=== PATIENT | male | born 1975 | race African-American/Black ===

== ENCOUNTER 2021-04-24 08:21 | Emergency (ER) | payer MEDICARE, MEDICAID ==
[2021-04-24 09:08] LABS: #Eosinphils 0.2 thou/uL (0.0-0.7); #Lymphocytes 1.6 thou/uL (1.20-3.40); #Monocytes 0.4 thou/uL (0.11-0.59); #Neutrophils 2.7 thou/uL (1.40-6.50); %Basophils 0.3 % (0.0-1.0); %Eosinophils 3.3 % (0.0-10.0); %Lymphocytes 32.6 % (21.0-51.0); %Monocytes 8.5 % (0.0-10.0); %Neutrophils 55.3 % (42.0-75.0); Hemoglobin 14.3 g/dL (14.0-18.0); Mean Corpuscular HGB CONC 32.6 g/dL (32.0-36.0); Mean Corpuscular Hemoglobin 29.2 pg (27.0-31.0); Mean Corpuscular Volume 89.6 fL (78.0-98.0); Mean Platelet Volume 7.8 fL (7.4-10.4); Platelet Count 236 thou/uL (130-400); RBC Distribution Width 13.7 % (11.5-14.5); White Blood Cell (WBC) Count 4.8 thou/uL (4.8-10.8)
[2021-04-24 09:29] LABS: ALT (SGPT) 28 U/L (8-55); AST (SGOT) 22 U/L (5-34); Albumin 3.9 g/dL (3.5-5.0); Alkaline Phosphatase 103 U/L (40-110); Anion Gap 15 mmol/L (10-20); BUN (Urea Nitrogen) 6 mg/dL (8.9-20.6); Bilirubin, Total 0.5 mg/dL (0.2-1.2); Calc. Creatinine Clearance 0 mL/min (70-130); Calcium 8.9 mg/dL (7.8-10.44); Carbon Dioxide 26 mmol/L (22-29); Chloride 100 mmol/L (98-107); Globulin 3.2 g/dL (2.4-3.5); Glucose 134 mg/dL (70-105); Potassium 4.7 mmol/L (3.5-5.1); Protein, Total 7.1 g/dL (6.0-8.3); Sodium 136 mmol/L (136-145)
[2021-04-24] MEDS ORDERED: methylPREDNISolone Sod Succ/PF 125 MG/2 ML VIAL ONE (10:02)
[2021-04-24 12:24] LABS: SARS-CoV-2 NAA Rapid Test Not Detected (NotDetected)
[2021-04-24 12:56] LABS: Troponin I Less than 0.010 ng/mL (< 0.028)
== END 2021-04-24 13:40 | disposition home or self-care (01) ==
LOC: ERS 08:21
DX: J44.1 Chronic obstructive pulmonary disease with (acute) exacerbation (principal); R07.89 Other chest pain; Z20.822 Contact with and (suspected) exposure to COVID-19; E11.9 Type 2 diabetes mellitus without complications; I10 Essential (primary) hypertension; F17.210 Nicotine dependence, cigarettes, uncomplicated
CPT/HCPCS: 71045; 80053; 84484 ×2; 85025; 93005; U0002; 36415; 96374; J2930

== ENCOUNTER 2021-05-20 03:44 | Emergency (ER) | payer MEDICARE, MEDICAID ==
[2021-05-20 04:17] LABS: Bacteria/HPF None Seen HPF (None Seen); Bilirubin Negative (Negative); Blood, Urine Negative (Negative); Clarity Clear (Clear); Glucose, Urine (Dipstick) Normal (Negative); Ketone, Urine Negative (Negative); Leukocyte Negative Leu/uL (Negative); Nitrite Negative (Negative); Protein, Urine (Dipstick) 300 mg/dL (Neg-Trace); RBC/HPF 0-3 HPF (0-3); Specific Gravity, Urine 1.033 (1.002-1.036); Squamous Epithelial 0-3 HPF (0-3); Urobilinogen 3 mg/dL (Less than 2)
[2021-05-20] MEDS ORDERED: Lidocaine Viscous Sol 2% 15 ml UD Cup ONE (04:39)
[2021-05-20] MEDS ORDERED: Mag-Al 1200 mg/1200 mg/30 ML UDCUP ONE (04:39)
[2021-05-20 05:22] LABS: #Eosinphils 0.1 thou/uL (0.0-0.7); #Lymphocytes 1.1 thou/uL (1.20-3.40); #Monocytes 0.4 thou/uL (0.11-0.59); #Neutrophils 3.1 thou/uL (1.40-6.50); %Basophils 0.3 % (0.0-1.0); %Eosinophils 3.1 % (0.0-10.0); %Lymphocytes 22.8 % (21.0-51.0); %Monocytes 7.7 % (0.0-10.0); %Neutrophils 66.2 % (42.0-75.0); Mean Corpuscular HGB CONC 31.6 g/dL (32.0-36.0); Mean Corpuscular Hemoglobin 28.3 pg (27.0-31.0); Mean Corpuscular Volume 89.6 fL (78.0-98.0); Mean Platelet Volume 7.5 fL (7.4-10.4); Platelet Count 253 thou/uL (130-400); Red Blood Cell (RBC) Count 4.92 mill/uL (4.70-6.10); White Blood Cell (WBC) Count 4.7 thou/uL (4.8-10.8)
[2021-05-20 05:47] LABS: ALT (SGPT) 42 U/L (8-55); AST (SGOT) 27 U/L (5-34); Albumin 3.5 g/dL (3.5-5.0); Alkaline Phosphatase 111 U/L (40-110); Anion Gap 12 mmol/L (10-20); BUN (Urea Nitrogen) 11 mg/dL (8.9-20.6); Bilirubin, Total 0.3 mg/dL (0.2-1.2); Calc. Creatinine Clearance 0 mL/min (70-130); Calcium 8.7 mg/dL (7.8-10.44); Carbon Dioxide 30 mmol/L (22-29); Chloride 104 mmol/L (98-107); Globulin 2.8 g/dL (2.4-3.5); Glucose 128 mg/dL (70-105); Lipase 26 U/L (8-78); Potassium 4.5 mmol/L (3.5-5.1); Protein, Total 6.3 g/dL (6.0-8.3); Sodium 141 mmol/L (136-145)
== END 2021-05-20 06:10 | disposition home or self-care (01) ==
LOC: ERS 03:44
DX: R10.13 Epigastric pain (principal); E11.9 Type 2 diabetes mellitus without complications; I10 Essential (primary) hypertension; F17.210 Nicotine dependence, cigarettes, uncomplicated; Z79.84 Long term (current) use of oral hypoglycemic drugs; Z79.899 Other long term (current) drug therapy
CPT/HCPCS: 36415; 80053; 81003; 81015; 83690; 85025; 93005

== ENCOUNTER 2021-06-08 18:56 | Inpatient (IN) | payer MEDICARE, MEDICAID ==
[2021-06-08 19:56] LABS: #Eosinphils 0.1 thou/uL (0.0-0.7); #Lymphocytes 1.2 thou/uL (1.20-3.40); #Monocytes 0.4 thou/uL (0.11-0.59); #Neutrophils 4.2 thou/uL (1.40-6.50); %Basophils 0.4 % (0.0-1.0); %Lymphocytes 19.8 % (21.0-51.0); %Monocytes 7.1 % (0.0-10.0); %Neutrophils 70.7 % (42.0-75.0); Hemoglobin 13.5 g/dL (14.0-18.0); Mean Corpuscular Hemoglobin 29.3 pg (27.0-31.0); Platelet Count 240 thou/uL (130-400); RBC Distribution Width 14.2 % (11.5-14.5); White Blood Cell (WBC) Count 5.9 thou/uL (4.8-10.8)
[2021-06-08] MEDS ORDERED: methylPREDNISolone Sod Succ/PF 125 MG/2 ML VIAL ONE (19:58)
[2021-06-08] MEDS ORDERED: Magnesium 2 GM/50 ML BAG (IN WATER) ONE (19:58)
[2021-06-08 20:24] LABS: ALT (SGPT) 21 U/L (8-55); AST (SGOT) 24 U/L (5-34); Albumin 3.5 g/dL (3.5-5.0); Alkaline Phosphatase 106 U/L (40-110); Anion Gap 15 mmol/L (10-20); BUN (Urea Nitrogen) 14 mg/dL (8.9-20.6); Bilirubin, Total 0.5 mg/dL (0.2-1.2); Calc. Creatinine Clearance 0 mL/min (70-130); Calcium 8.5 mg/dL (7.8-10.44); Carbon Dioxide 27 mmol/L (22-29); Chloride 102 mmol/L (98-107); Glucose 101 mg/dL (70-105); Potassium 4.1 mmol/L (3.5-5.1); Protein, Total 6.5 g/dL (6.0-8.3); Sodium 140 mmol/L (136-145)
[2021-06-08] MEDS ORDERED: Furosemide 40 MG/4 ML VIAL ONE (21:21)
[2021-06-08] MEDS ORDERED: Nitroglycerin 2% Ointment 1 INCH/1 GM Packet ONE (21:21)
[2021-06-08] MEDS ORDERED: Ondansetron PF 4 MG/2 ML Vial IVP PRN (21:31)
[2021-06-08] MEDS ORDERED: Dextrose 50% Abboject 50 ML SYRINGE SLOW IVP PRN (21:33)
[2021-06-08] MEDS ORDERED: hydrALAZINE 20 MG/ML VIAL SLOW IVP PRN (21:33)
[2021-06-08] MEDS ORDERED: Dextrose 5% in Water 1,000 ML IV PRN (21:33)
[2021-06-08 22:22] LABS: SARS-CoV-2 NAA Rapid Test Not Detected (NotDetected)
[2021-06-09 00:18] VITALS: BMI 49.4
[2021-06-09] MEDS: methylPREDNISolone Sod Succ 40 MG VIAL IVP SCH ×6 (01:05→18:20)
[2021-06-09 02:47] LABS: Troponin I Less than 0.010 ng/mL (< 0.028)
[2021-06-09 04:51] LABS: #Eosinphils 0.1 thou/uL (0.0-0.7); #Lymphocytes 0.5 thou/uL (1.20-3.40); #Monocytes 0.1 thou/uL (0.11-0.59); #Neutrophils 7.5 thou/uL (1.40-6.50); %Basophils 0.1 % (0.0-1.0); %Lymphocytes 6.1 % (21.0-51.0); %Monocytes 1.7 % (0.0-10.0); %Neutrophils 91.1 % (42.0-75.0); Mean Corpuscular HGB CONC 33.2 g/dL (32.0-36.0); Mean Corpuscular Volume 87.3 fL (78.0-98.0); Mean Platelet Volume 7.3 fL (7.4-10.4); Platelet Count 260 thou/uL (130-400); RBC Distribution Width 14.4 % (11.5-14.5); Red Blood Cell (RBC) Count 4.83 mill/uL (4.70-6.10); White Blood Cell (WBC) Count 8.3 thou/uL (4.8-10.8)
[2021-06-09 05:16] LABS: Anion Gap 14 mmol/L (10-20); BUN (Urea Nitrogen) 14 mg/dL (8.9-20.6); Calc. Creatinine Clearance 239 mL/min (70-130); Carbon Dioxide 29 mmol/L (22-29); Chloride 99 mmol/L (98-107); Glucose 209 mg/dL (70-105); Magnesium 1.8 mg/dL (1.6-2.6); Potassium 4.3 mmol/L (3.5-5.1); Sodium 138 mmol/L (136-145)
[2021-06-09] MEDS: Furosemide 40 MG/4 ML VIAL SLOW IVP SCH ×2 (05:33→14:36)
[2021-06-09] MEDS: HumaLOG 300 UNITS/3 ML VIAL SC PRN ×2 (05:46→12:44)
[2021-06-09] MEDS ORDERED: Nitroglycerin 0.4 MG TAB (25 Tab Bottle) SL PRN (06:53)
[2021-06-09] MEDS ORDERED: FLU VACC QS2021-22(6MOS UP)/PF 60 MCG/0.5 ML SYRINGE IM ONE (09:00)
[2021-06-09] MEDS ORDERED: Prevnar 13-Val Conj/PF 0.5 ML SYRINGE IM ONE (09:00)
[2021-06-09] MEDS: Acetaminophen 325 MG TAB PO PRN (09:31)
[2021-06-09] MEDS: Enoxaparin Sodium 40 MG/0.4 ML SYRINGE SC SCH (09:31)
[2021-06-09] MEDS: hydrALAZINE 20 MG/ML VIAL SLOW IVP PRN (09:37)
[2021-06-09] MEDS ORDERED: Lisinopril 5 MG TAB PO SCH (12:30)
[2021-06-09] MEDS: Albuterol 200 PUFF (6.7GM INHALER) INH SCH ×2 (14:49→18:41)
[2021-06-09] MEDS: Mometasone 200 MCG/Formoterol 5 MCG 120 PUFF INHALER INH SCH (18:57)
[2021-06-10] MEDS: HumaLOG 300 UNITS/3 ML VIAL SC PRN ×5 (00:02→22:42)
[2021-06-10] MEDS: methylPREDNISolone Sod Succ 40 MG VIAL IVP SCH ×2 (00:04→05:11)
[2021-06-10] MEDS: Albuterol 200 PUFF (6.7GM INHALER) INH SCH ×3 (05:02→07:42)
[2021-06-10] MEDS: Furosemide 40 MG/4 ML VIAL SLOW IVP SCH ×2 (05:11→13:43)
[2021-06-10 05:16] LABS: #Lymphocytes 0.6 thou/uL (1.20-3.40); #Monocytes 0.4 thou/uL (0.11-0.59); #Neutrophils 9.4 thou/uL (1.40-6.50); %Eosinophils 0.1 % (0.0-10.0); %Lymphocytes 5.7 % (21.0-51.0); %Monocytes 3.9 % (0.0-10.0); %Neutrophils 90.3 % (42.0-75.0); Hemoglobin 13.6 g/dL (14.0-18.0); Mean Corpuscular HGB CONC 32.1 g/dL (32.0-36.0); Mean Corpuscular Hemoglobin 28.1 pg (27.0-31.0); Mean Corpuscular Volume 87.6 fL (78.0-98.0); Mean Platelet Volume 7.1 fL (7.4-10.4); Platelet Count 293 thou/uL (130-400); RBC Distribution Width 14.4 % (11.5-14.5); Red Blood Cell (RBC) Count 4.84 mill/uL (4.70-6.10); White Blood Cell (WBC) Count 10.4 thou/uL (4.8-10.8)
[2021-06-10] MEDS: Mometasone 200 MCG/Formoterol 5 MCG 120 PUFF INHALER INH SCH ×2 (07:41→18:17)
[2021-06-10] MEDS: hydrALAZINE 20 MG/ML VIAL SLOW IVP PRN ×2 (07:56→14:38)
[2021-06-10] MEDS: Atorvastatin Calcium 40 MG TAB PO SCH (07:57)
[2021-06-10] MEDS: Enoxaparin Sodium 40 MG/0.4 ML SYRINGE SC SCH (07:57)
[2021-06-10] MEDS: Losartan 25 MG TAB PO SCH (07:58)
[2021-06-10] MEDS ORDERED: Non-Formulary Item 1 EACH (Losartan Potassium [Losartan Potassium] 50 MG Tablet) PO SCH (09:00)
[2021-06-10] MEDS: Labetalol 100 MG TAB PO SCH ×2 (09:13→22:44)
[2021-06-10] MEDS ORDERED: cloNIDine 0.1 MG TAB PO SCH (11:00)
[2021-06-10 13:47] LABS: Calcium 8.5 mg/dL (7.8-10.44); Chloride 100 mmol/L (98-107); Glucose 434 mg/dL (70-105); Potassium 4.9 mmol/L (3.5-5.1); Sodium 134 mmol/L (136-145)
[2021-06-10 13:49] LABS: Anion Gap 16 mmol/L (10-20); Carbon Dioxide 23 mmol/L (22-29)
[2021-06-10 13:51] LABS: Calc. Creatinine Clearance 199 mL/min (70-130)
[2021-06-10 13:52] LABS: BUN (Urea Nitrogen) 14 mg/dL (8.9-20.6)
[2021-06-10 13:53] LABS: Magnesium 1.8 mg/dL (1.6-2.6)
[2021-06-10] MEDS ORDERED: Lantus 1000 UNITS/10 ML VIAL SC SCH (21:00)
[2021-06-11] MEDS: hydrALAZINE 20 MG/ML VIAL SLOW IVP PRN (00:39)
[2021-06-11 05:18] LABS: #Lymphocytes 1.5 thou/uL (1.20-3.40); #Monocytes 0.6 thou/uL (0.11-0.59); #Neutrophils 7.2 thou/uL (1.40-6.50); %Basophils 0.1 % (0.0-1.0); %Eosinophils 0.3 % (0.0-10.0); %Lymphocytes 15.7 % (21.0-51.0); %Monocytes 6.4 % (0.0-10.0); %Neutrophils 77.5 % (42.0-75.0); Hemoglobin 13.8 g/dL (14.0-18.0); Mean Corpuscular HGB CONC 32.5 g/dL (32.0-36.0); Mean Corpuscular Hemoglobin 28.8 pg (27.0-31.0); Mean Corpuscular Volume 88.4 fL (78.0-98.0); Mean Platelet Volume 7.3 fL (7.4-10.4); Platelet Count 269 thou/uL (130-400); RBC Distribution Width 14.6 % (11.5-14.5); Red Blood Cell (RBC) Count 4.79 mill/uL (4.70-6.10); White Blood Cell (WBC) Count 9.2 thou/uL (4.8-10.8)
[2021-06-11] MEDS: Acetaminophen 325 MG TAB PO PRN (05:37)
[2021-06-11] MEDS: Furosemide 40 MG/4 ML VIAL SLOW IVP SCH (05:38)
[2021-06-11 05:39] LABS: Anion Gap 15 mmol/L (10-20); BUN (Urea Nitrogen) 14 mg/dL (8.9-20.6); Calc. Creatinine Clearance 241 mL/min (70-130); Calcium 8.9 mg/dL (7.8-10.44); Carbon Dioxide 32 mmol/L (22-29); Chloride 98 mmol/L (98-107); Glucose 196 mg/dL (70-105); Potassium 3.9 mmol/L (3.5-5.1); Sodium 141 mmol/L (136-145)
[2021-06-11] MEDS: HumaLOG 300 UNITS/3 ML VIAL SC PRN ×2 (06:31→12:42)
[2021-06-11] MEDS: Mometasone 200 MCG/Formoterol 5 MCG 120 PUFF INHALER INH SCH (06:55)
[2021-06-11] MEDS ORDERED: Lantus 1000 UNITS/10 ML VIAL SC SCH (09:00)
[2021-06-11] MEDS: Losartan 25 MG TAB PO SCH (10:02)
[2021-06-11] MEDS: Labetalol 100 MG TAB PO SCH (10:02)
[2021-06-11] MEDS: Atorvastatin Calcium 40 MG TAB PO SCH (10:02)
[2021-06-11] MEDS: Enoxaparin Sodium 40 MG/0.4 ML SYRINGE SC SCH (10:04)
[2021-06-11 13:05] VITALS: BP 174/69; TEMP 98.4
== END 2021-06-11 15:30 | disposition home or self-care (01) | DRG 205 ==
LOC: ERS 18:56 → 2NO 21:34
PROVIDERS: ADMIT Internal Medicine; ATTEND Internal Medicine
DX: E66.2 Morbid (severe) obesity with alveolar hypoventilation (principal); I50.33 Acute on chronic diastolic (congestive) heart failure; Z68.42 Body mass index [BMI] 45.0-49.9, adult; J44.1 Chronic obstructive pulmonary disease with (acute) exacerbation; Z20.822 Contact with and (suspected) exposure to COVID-19; I11.0 Hypertensive heart disease with heart failure; I16.0 Hypertensive urgency; K21.9 Gastro-esophageal reflux disease without esophagitis; E78.5 Hyperlipidemia, unspecified; E78.00 Pure hypercholesterolemia, unspecified; F20.9 Schizophrenia, unspecified; F31.9 Bipolar disorder, unspecified; F17.210 Nicotine dependence, cigarettes, uncomplicated; E11.9 Type 2 diabetes mellitus without complications; F12.10 Cannabis abuse, uncomplicated; I07.1 Rheumatic tricuspid insufficiency; Z82.49 Family history of ischemic heart disease and other diseases of the circulatory system; Z79.84 Long term (current) use of oral hypoglycemic drugs; Z79.51 Long term (current) use of inhaled steroids; Z79.899 Other long term (current) drug therapy
CPT/HCPCS: 36415; 36416; 71045; 80048; 80053; 83735; 83880; 84484; 85025; 93005; 93306; 94640; 96365; 96375; J0360; J1650; J1815; J1940; J2920; J2930; J3475; J7620; U0002

== ENCOUNTER 2021-06-23 11:45 | Emergency (ER) | payer MEDICARE, MEDICAID ==
[2021-06-23] MEDS ORDERED: Iopamidol 370 76% 100 ML VIAL ONE (12:24)
[2021-06-23 13:09] LABS: #Eosinphils 0.2 thou/uL (0.0-0.7); #Lymphocytes 0.9 thou/uL (1.20-3.40); #Monocytes 0.5 thou/uL (0.11-0.59); #Neutrophils 5.4 thou/uL (1.40-6.50); %Basophils 0.3 % (0.0-1.0); %Eosinophils 2.7 % (0.0-10.0); %Lymphocytes 12.9 % (21.0-51.0); %Monocytes 6.5 % (0.0-10.0); %Neutrophils 77.7 % (42.0-75.0); Hemoglobin 13.3 g/dL (14.0-18.0); Mean Corpuscular HGB CONC 32.3 g/dL (32.0-36.0); Mean Corpuscular Volume 89.8 fL (78.0-98.0); Platelet Count 240 thou/uL (130-400); RBC Distribution Width 14.4 % (11.5-14.5)
[2021-06-23 13:41] LABS: ALT (SGPT) 30 U/L (8-55); AST (SGOT) 23 U/L (5-34); Albumin 3.4 g/dL (3.5-5.0); Alkaline Phosphatase 131 U/L (40-110); Anion Gap 12 mmol/L (10-20); BUN (Urea Nitrogen) 9 mg/dL (8.9-20.6); Bilirubin, Total 0.4 mg/dL (0.2-1.2); Calc. Creatinine Clearance 0 mL/min (70-130); Calcium 8.9 mg/dL (7.8-10.44); Carbon Dioxide 31 mmol/L (22-29); Chloride 101 mmol/L (98-107); Globulin 2.9 g/dL (2.4-3.5); Glucose 175 mg/dL (70-105); Potassium 4.5 mmol/L (3.5-5.1); Protein, Total 6.3 g/dL (6.0-8.3); Sodium 139 mmol/L (136-145)
[2021-06-23] MEDS ORDERED: Furosemide 40 MG/4 ML VIAL ONE ×2 (14:19→14:20)
[2021-06-23] MEDS ORDERED: Albuterol 200 PUFF (6.7GM INHALER) ONE (14:19)
== END 2021-06-23 15:25 | disposition home or self-care (01) ==
LOC: ERS 11:45
DX: I11.0 Hypertensive heart disease with heart failure (principal); I50.9 Heart failure, unspecified; G47.30 Sleep apnea, unspecified; J44.9 Chronic obstructive pulmonary disease, unspecified; K21.9 Gastro-esophageal reflux disease without esophagitis; E11.9 Type 2 diabetes mellitus without complications; F17.210 Nicotine dependence, cigarettes, uncomplicated; Z79.84 Long term (current) use of oral hypoglycemic drugs
CPT/HCPCS: 71045; 71275; 80053; 83880; 84484; 85025; 93005; 94760; 96374; J1940; Q9967

== ENCOUNTER 2021-06-24 23:25 | Emergency (ER) | payer MEDICARE, MEDICAID ==
[2021-06-24] MEDS ORDERED: Morphine 4 MG/ML VIAL ONE (23:45)
[2021-06-24] MEDS ORDERED: Furosemide 40 MG/4 ML VIAL ONE (23:46)
[2021-06-24] MEDS ORDERED: Ondansetron PF 4 MG/2 ML Vial ONE (23:46)
[2021-06-24 23:59] LABS: #Eosinphils 0.2 thou/uL (0.0-0.7); #Lymphocytes 1.2 thou/uL (1.20-3.40); #Monocytes 0.5 thou/uL (0.11-0.59); #Neutrophils 4.8 thou/uL (1.40-6.50); %Basophils 0.3 % (0.0-1.0); %Eosinophils 2.3 % (0.0-10.0); %Lymphocytes 17.6 % (21.0-51.0); %Monocytes 7.1 % (0.0-10.0); %Neutrophils 72.7 % (42.0-75.0); Mean Corpuscular HGB CONC 32.6 g/dL (32.0-36.0); Mean Corpuscular Hemoglobin 28.7 pg (27.0-31.0); Mean Corpuscular Volume 88.1 fL (78.0-98.0); Mean Platelet Volume 7.3 fL (7.4-10.4); Platelet Count 234 thou/uL (130-400); RBC Distribution Width 14.5 % (11.5-14.5); Red Blood Cell (RBC) Count 4.52 mill/uL (4.70-6.10); White Blood Cell (WBC) Count 6.6 thou/uL (4.8-10.8)
[2021-06-25] MEDS ORDERED: Ondansetron ODT 8 MG TAB ONE (00:03)
[2021-06-25] MEDS ORDERED: Ondansetron PF 4 MG/2 ML Vial ONE (00:04)
[2021-06-25 00:14] LABS: ALT (SGPT) 30 U/L (8-55); AST (SGOT) 31 U/L (5-34); Albumin 3.4 g/dL (3.5-5.0); Alkaline Phosphatase 118 U/L (40-110); Anion Gap 13 mmol/L (10-20); BUN (Urea Nitrogen) 11 mg/dL (8.9-20.6); Bilirubin, Total 0.7 mg/dL (0.2-1.2); Calc. Creatinine Clearance 0 mL/min (70-130); Calcium 9.1 mg/dL (7.8-10.44); Carbon Dioxide 33 mmol/L (22-29); Chloride 97 mmol/L (98-107); Globulin 3.2 g/dL (2.4-3.5); Glucose 155 mg/dL (70-105); Potassium 3.7 mmol/L (3.5-5.1); Protein, Total 6.6 g/dL (6.0-8.3); Sodium 139 mmol/L (136-145)
[2021-06-25] MEDS ORDERED: Nitroglycerin 2% Ointment 1 INCH/1 GM Packet ONE (01:30)
[2021-06-25 02:19] LABS: Bacteria/HPF None Seen HPF (None Seen); Bilirubin Negative (Negative); Blood, Urine Negative (Negative); Clarity Clear (Clear); Glucose, Urine (Dipstick) Normal (Negative); Ketone, Urine Negative (Negative); Leukocyte Negative Leu/uL (Negative); Nitrite Negative (Negative); Protein, Urine (Dipstick) 30 mg/dL (Neg-Trace); RBC/HPF 0-3 HPF (0-3); Specific Gravity, Urine 1.011 (1.002-1.036); Squamous Epithelial 0-3 HPF (0-3); Urobilinogen Normal mg/dL (Less than 2); WBC/HPF 0-3 HPF (0-3); pH, Urine 6.5 (5.0-9.0)
[2021-06-25] MEDS ORDERED: Labetalol HCl 100 MG/20 ML VIAL ONE (02:42)
== END 2021-06-25 04:09 | disposition short-term general hospital (02) ==
LOC: ERS 23:25
DX: I11.0 Hypertensive heart disease with heart failure (principal); I50.9 Heart failure, unspecified; E11.9 Type 2 diabetes mellitus without complications; E78.00 Pure hypercholesterolemia, unspecified; J44.9 Chronic obstructive pulmonary disease, unspecified; K21.9 Gastro-esophageal reflux disease without esophagitis; F17.210 Nicotine dependence, cigarettes, uncomplicated; Z79.84 Long term (current) use of oral hypoglycemic drugs; Z79.899 Other long term (current) drug therapy
CPT/HCPCS: 71045; 80053; 81003; 81015; 83880; 84484; 85025; 93005; 96374; 96375; J1940; J2270; J2405; Q0162